=== PATIENT | male | born 1995 | race African-American/Black ===

== ENCOUNTER 2017-07-09 13:56 | Emergency (ER) | payer BC, OTHER ==
[2017-07-09 14:09] VITALS: RESP 16
--- NOTE | 2017-07-09 15:22 | EDPHY ---
H & P Stated Complaint: INFECTION ON LEFT LEG. POSSIBLE CELLULITIS. 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 Seen by Provider: 07/09/17 15:21 - Personal History Current Tetanus/Diphtheria Vaccine: Yes Current Tetanus Diphtheria and Acellular Pertussis (TDAP): Yes - Medical/Surgical History Hx Asthma: No Hx Chronic Respiratory Disease: No Hx Diabetes: No Hx Cardiac Disease: No Hx Renal Disease: No Hx Cirrhosis: No Hx Alcoholism: No Hx HIV/AIDS: No Hx Splenectomy or Spleen Trauma: No - Social History Smoking Status: Never smoked Constitutional: Initial Vital Signs Temperature (C) 37.0 C 07/09/17 14:06 Heart Rate 60 07/09/17 14:06 Respiratory Rate 16 07/09/17 14:06 Blood Pressure 143/90 H 07/09/17 14:06 O2 Sat (%) 96 07/09/17 14:06 O2 Delivery Mode Room Air Allergies/Adverse Reactions: No Known Allergies Allergy (Unverified 07/09/17 14:05) Home Medications: Medication Instructions Recorded NK [No Known Home Meds] 07/09/17 Medical Decision Making ED Course/Re-evaluation: CHIEF COMPLAINT: HISTORY OF PRESENT ILLNESS: must have 4 elements: Location, Quality, Severity , Duration, Timing, Context, Modifying Factors, Associated Signs and Symptoms REVIEW OF SYSTEMS: A 10 point review of systems was performed and is negative with the exception of the elements mentioned in the history of present illness. PHYSICAL EXAM: HR, BP, O2 Sat, RR. Temp noted General Appearance: Alert, well hydrated, appropriate, and non-toxic appearing. Head: Atraumatic without scalp tenderness or obvious injury Eyes: Pupils equal, round, reactive to light and accommodation, EOMI, no trauma , no injection. Ears: Clear bilaterally, no perforation, normal landmarks Nose: Atraumatic, no rhinorrhea, clear. Throat: There is no erythema or exudates, no lesions, normal tonsils, mucus membranes moist. Neck: Supple, 2+ carotid upstroke, nontender, no lymphadenopathy. Respiratory: No retractions, no distress, no wheezes, and no accessory muscle use. Lungs are clear to auscultation bilaterally. Cardiovascular: Regular rate and rhythm, no murmurs, rubs, or gallops. Bilateral carotid, radial, dorsalis pedis, and posterior tibial pulses intact. Good capillary refill all extremities. Gastrointestinal: Abdomen is soft, nontender, non-distended, no masses, no rebound, no guarding, no peritoneal signs. Musculoskeletal: Normal active ROM of all extremities, atraumatic. Neurological: Alert, appropriate, and interactive. The patient has normal DTRs and non-focal cranial nerves, motor, sensory, and cerebellar exam. Skin: No rashes, good turgor, no nodules on palpation. Past medical history: Past surgical history: Family history: Social history: DIAGNOSTICS/PROCEDURES/CRITICAL CARE TIME: DIFFERENTIAL DIAGNOSIS: MEDICAL DECISION MAKING:
[2017-07-09] MEDS ORDERED: VANCOMYCIN HCL/NORMAL SALINE 250 ML IV ONE (15:35)
--- NOTE | 2017-07-09 15:35 | EDPHY ---
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 The team physician started him on Bactrim today, given 1 dose and recommend he go to the ER to receive IV vancomycin. He is otherwise feeling well. 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 PHYSICAL EXAM (Prior to examination, patient consented to physical exam, hands were washed and my usual and customary physical exam procedures followed) 1) GENERAL: Well-developed, well-nourished, alert and oriented. Appears to be in no acute distress. 2) HEAD: Normocephalic, atraumatic 3) HEENT: Sclera anicteric. 4) NECK: Full range of motion 5) LUNGS: Clear auscultation bilaterally 6) HEART: Regular rate and rhythm 7) ABDOMEN: No guarding, no rebound, no focal tenderness, 8) MUSCULOSKELETAL: Left lower extremity: Pretibial granulating abrasion with halo erythema, central area of fluctuance, no drainage 9) BACK: no visual or palpable abnormality. 10) SKIN: No rash, no petechiae. 11) Psychiatric: Patient is oriented X 3, there is no agitation. DIFFERENTIAL DIAGNOSIS: in no particular order including not limited to cellulitis, necrotizing fasciitis, abscess (Felix Gonzalez) Constitutional: Initial Vital Signs Temperature (C) 37.0 C 07/09/17 14:06 Heart Rate 60 07/09/17 14:06 Respiratory Rate 16 07/09/17 14:06 Blood Pressure 143/90 H 07/09/17 14:06 O2 Sat (%) 96 07/09/17 14:06 O2 Delivery Mode Room Air Allergies/Adverse Reactions: No Known Allergies Allergy (Unverified 07/09/17 14:05) Home Medications: Medication Instructions Recorded Cephalexin [Keflex] 500 mg PO TID 10 Days cap 07/09/17 MDM/Departure <Mukul Bose - Last Filed: 07/09/17 15:36> <Felix Gonzalez - Last Filed: 07/09/17 16:32> - [facility] Imaging Results: Imaging Impressions Extremity Ultrasound 07/09/17 15:36 Impression: No visible abscess. Findings discussed with Felix Gonzalez 07/09/2017 at 16:11. Images reviewed by myself (Felix Gonzalez) Medications Given: Vancomycin/Sodium Chloride (Vancomycin 1 Gm (Premix)) 250 mls @ 250 mls/hr IV EDNOW ONE PRN Reason: Protocol Stop: 07/09/17 16:34 Last Admin: 07/09/17 15:43 Dose: 250 mls ED Course/Re-evaluation: I consulted this patient and informed him that one dose of IV antibiotics is not beneficial to treat his infection. I informed him about odo and nephro toxicity. I would not usually treat anyone with this particular infection with IV antibiotics. There is no evidence in the literature that one dose of IV antibiotics would not cure this type of infection. He and his life skills trainer would still like to receive the one dose of Vancomycin. (Mukul Bose) This patient was evaluated with serial exams and also examined by Dr. Mukul Bose in the ER. The clinical athletic instructor the in consultation with the team physician are requesting IV vancomycin. Patient has no history of chronic skin infections or known cutaneous MRSA. He has only received 1 dose of oral antibiotics and I would not expect resolution of his cellulitis with single dose of antibiotics. I think he could be treated with further oral antibiotics at this point however there requesting IV vancomycin. We discussed the indications risks benefits including, but not limited to, ototoxicity, nephrotoxicity. They would still like the IV vancomycin in preparation for a football game tomorrow (Wednesday). I would also recommend starting oral Keflex in addition to his oral Bactrim. (Felix Gonzalez) - Depart Disposition: Home, Routine, Self-Care Clinical Impression: Cellulitis of left lower extremity without foot Condition: Good Instructions: Cellulitis (ED) Additional Instructions: Return to the ER if you develop redness, swelling, discharge, warmth to the wound, red streaks going up your leg, or any other symptoms that concern you. Keep taking her Bactrim prescription as directed, also take the new antibiotic, Keflex, as well. Prescriptions: Cephalexin [Keflex] 500 mg PO TID 10 Days cap Referrals: Follow-up, with your team physician in 1 day [Other] - As per Instructions Report Scribed for: Mukul Bose Report Scribed by: Ellen Petty Date of Report: 07/09/17 Time of Report: 15:39 <Mukul Bose - Last Filed: 07/09/17 15:36>
[2017-07-09 16:16] LABS: % IMMATURE GRANULYOCYTES 0.3 % (0.0-1.1); ABSOLUTE IMMATURE GRANULOCYTES 0.03 10^3/uL (0.00-0.10); ADD DIFF? NO; ADD MORPH? NO; ADD SCAN? NO; ATYPICAL LYMPHOCYTE FLAG 10 (0-99); FRAGMENT RBC FLAG 0 (0-99); HEMATOCRIT 44.5 % (40.0-51.0); HEMOGLOBIN 15.7 g/dL (13.7-17.5); LEFT SHIFT FLG 0 (0-99); LIPEMIA HEMOLYSIS FLAG 90 (0-99); MEAN CELL HEMOGLOBIN 30.7 pg (27.9-34.1); MEAN CELL HEMOGLOBIN CONCENTR. 35.3 g/dL (32.4-36.7); MEAN CELL VOLUME 86.9 fL (81.5-99.8); MEAN PLATELET VOLUME 10.3 fL (8.7-11.7); PLATELET CLUMPS FLAG 10 (0-99); PLATELET COUNT 228 10^3/uL (150-400); RED BLOOD CELL COUNT 5.12 10^6/uL (4.40-6.38); RED CELL DISTRIBUTION WIDTH 11.3 % (11.5-15.2)
[2017-07-09 16:41] LABS: CALCIUM 9.1 mg/dL (8.5-10.4); CARBON DIOXIDE 25 mEq/l (22-31); CREATININE 1.1 mg/dL (0.7-1.3); GLOMERULAR FILTRATION RATE > 60; GLUCOSE 85 mg/dL (70-100); SODIUM 141 mEq/L (134-144)
[2017-07-09 17:04] VITALS: BP 170/90; PULSE 65; TEMP 98.1; O2SAT 97
[2017-07-09 17:22] LABS: ANION GAP 15 mEq/L (8-16); CHLORIDE 101 mEq/L (97-110)
== END 2017-07-09 17:04 | disposition home or self-care (01) ==
DX: L03.116 Cellulitis of left lower limb (principal)
CPT/HCPCS: 96365; J3370